=== PATIENT | male | born 1965 | race Caucasian/White ===

== ENCOUNTER 2017-04-23 23:56 | Emergency (ER) | payer BC, OTHER ==
[2017-04-24] MEDS ORDERED: ETOMIDATE 20 MG INJ (00:19)
[2017-04-24] MEDS: morphine 4 MG/ML VIAL IV (00:34)
[2017-04-24] MEDS: ONDANSETRON 4 MG INJ IV (00:35)
[2017-04-24] MEDS: ETOMIDATE 20 MG INJ IV (00:48)
== END 2017-04-24 01:26 | disposition home or self-care (01) ==
LOC: E/R 23:56
DX: S43.005A Unspecified dislocation of left shoulder joint, initial encounter (principal); X58.XXXA Exposure to other specified factors, initial encounter; Y92.9 Unspecified place or not applicable
CPT/HCPCS: 23650; 96374; 96375; 99285-25

== ENCOUNTER 2017-06-26 03:45 | Emergency (ER) | payer BC ==
[2017-06-26] MEDS: morphine 4 MG/ML VIAL IV (04:05)
[2017-06-26] MEDS: ONDANSETRON 4 MG INJ IV (04:05)
[2017-06-26] MEDS: ETOMIDATE 20 MG INJ IV (05:23)
== END 2017-06-26 05:10 | disposition home or self-care (01) ==
LOC: E/R 03:45
DX: M24.412 Recurrent dislocation, left shoulder (principal)
CPT/HCPCS: 23650; 73030; 99285-25